=== PATIENT | female | born 1950 | race Caucasian/White ===

== ENCOUNTER 2020-02-11 14:36 | Emergency (ER) | payer BC, MEDICARE ==
--- NOTE | 2020-02-11 15:37 | ER Document Report ---
ED Medical Screen (RME) - General Chief Complaint: Constipation Stated Complaint: CONSTIPATION - DR REFERRED Time Seen by Provider: 02/11/20 15:22 Primary Care Provider: AMINATA GALVAN MD [Primary Care Provider] - Follow up as needed TRAVEL OUTSIDE OF THE [place] IN LAST 30 DAYS: No - HPI Notes: 02/11/20 15:35 69-year-old female to the emergency department with complaints of abdominal pain, constipation, weight loss over the past several weeks. She presents with 1 of her friends who states that she has been very concerned about the patient's weight loss. She thinks in about the past month she has had about 17 pound weight loss. Patient states that she really does not have much of an appetite and has been having some difficulty going to the bathroom. She did have a bowel movement earlier today but it was unsatisfactory. She denies any night sweats but does admit to chills. 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 The friend who is with the patient states that called her primary care physician, Dr. aCrranza and was advised to come to the emergency department. The friend also reports frequent urination, burning with urination and some confusion. I performed a brief medical screening exam on the patient determined that the patient needs further evaluation and management by main side provider. I have placed initial orders to help expedite care. Physical Exam - Vital signs Vitals: Temp Pulse Resp BP Pulse Ox 98.4 F 78 18 120/63 99 02/11/20 14:51 02/11/20 14:51 02/11/20 14:51 02/11/20 14:51 02/11/20 14:51 Course - Vital Signs Vital signs: Temp Pulse Resp BP Pulse Ox 98.4 F 78 18 120/63 99 02/11/20 14:51 02/11/20 14:51 02/11/20 14:51 02/11/20 14:51 02/11/20 14:51 Doctor's Discharge - Discharge Referrals: AMINATA GALVAN MD [Primary Care Provider] - Follow up as needed
[2020-02-11 16:13] LABS: ABSOLUTE BASOPHILS # (AUTO) 0.1 10^3/uL (0.0-0.2); ABSOLUTE EOSINOPHILS # (AUTO) 0.1 10^3/uL (0.0-0.6); ABSOLUTE LYMPHOCYTES (AUTO) 1.3 10^3/uL (0.5-4.7); ABSOLUTE MONOCYTES (AUTO) 0.9 10^3/uL (0.1-1.4); ABSOLUTE NEUT (AUTO) 9.3 10^3/uL (1.7-8.2); BASOPHILS % (AUTO) 0.4 % (0-2); EOSINOPHILS % (AUTO) 0.5 % (0-6); HEMATOCRIT 42.8 % (36.0-47.0); HEMOGLOBIN 14.6 g/dL (12.0-15.5); LYMPHOCYTES % (AUTO) 11.1 % (13-45); MEAN CORPUSCULAR HEMOGLOBIN 30.2 pg (27.0-33.4); MEAN CORPUSCULAR HGB CONC 34.1 g/dL (32.0-36.0); MEAN CORPUSCULAR VOLUME 88 fl (80-97); MONOCYTES % (AUTO) 7.6 % (3-13); PLATELET COUNT 253 10^3/uL (150-450); RED BLOOD COUNT 4.85 10^6/uL (3.72-5.28); RED CELL DISTRIBUTION WIDTH 13.2 % (11.5-14.0); SEGMENTED NEUTROPHILS % (AUTO) 80.4 % (42-78); TOTAL CELLS COUNTED % (AUTO) 100 %; WHITE BLOOD COUNT 11.6 10^3/uL (4.0-10.5)
[2020-02-11 16:17] LABS: APPEARANCE,URINE SLIGHTLY-CLOUDY; BILIRUBIN,URINE NEGATIVE (NEGATIVE); COLOR,URINE STRAW; GLUCOSE, URINE NEGATIVE (NEGATIVE); KETONES,URINE NEGATIVE (NEGATIVE); PROTEIN,URINE NEGATIVE (NEGATIVE); URINE SPECIFIC GRAVITY 1.002; UROBILINOGEN,URINE NEGATIVE mg/dL (<2.0)
[2020-02-11 16:36] LABS: ALBUMIN 4.4 g/dL (3.5-5.0); ALKALINE PHOSPHATASE 82 U/L (38-126); ANION GAP 9 (5-19); ASPARTATE AMINO TRANSFERASE 25 U/L (14-36); BILIRUBIN,DIRECT 0.3 mg/dL (0.0-0.4); BILIRUBIN,TOTAL 1.3 mg/dL (0.2-1.3); BLOOD UREA NITROGEN 10 mg/dL (7-20); CALCIUM 9.9 mg/dL (8.4-10.2); CARBON DIOXIDE 28 mmol/L (22-30); CHLORIDE 97 mmol/L (98-107); GLUCOSE 100 mg/dL (75-110); POTASSIUM 3.6 mmol/L (3.6-5.0); TOTAL PROTEIN 7.1 g/dL (6.3-8.2)
--- NOTE | 2020-02-11 20:31 | RADIOLOGY REPORT (SQ) ---
CLINICAL INDICATION: abd pain, constipation, weight loss. . TECHNIQUE: Contrast enhanced spiral axial CT imaging was obtained of the abdomen and pelvis with multiplanar reconstructions. This exam was performed according to our departmental dose-optimization program, which includes automated exposure control, adjustment of the mA and/or kV according to patient size and/or use of iterative reconstruction techniques. Additional delayed phase imaging COMPARISON: None. CORRELATION: None. FINDINGS: Abdomen: The lung bases are grossly clear. The heart is prominent with coronary calcification. No evidence of pleural or pericardial fluid. The liver is of normal size contour and attenuation. The gallbladder is nondistended without inflammatory change. The pancreas is unremarkable. The spleen is unremarkable. The adrenals are unremarkable. The kidneys demonstrate a focal area of poor perfusion midpole the right kidney laterally, best seen series 3 image 34. Heterogeneous right nephrogram. There is no evidence of free air. No free fluid. No bulky adenopathy. Abdominal aorta is calcified but nonaneurysmal. Pelvis: The bowel is nonobstructed. The bowel is unopacified with oral contrast. Pelvic contents are unremarkable. The appendix is normal. Visualized bones are unremarkable. IMPRESSION: Focal area of heterogeneous perfusion midpole of the right kidney laterally. Most likely diagnosis is focal pyelonephritis. A neoplasm is possible but considered less likely as there is no positive mass effect. There are surrounding inflammatory changes. Advise correlation with urinalysis.
--- NOTE | 2020-02-11 22:22 | RADIOLOGY REPORT (SQ) ---
INDICATION: memory loss. COMPARISON: None CORRELATION: None TECHNIQUE: Noncontrast spiral axial CT images were obtained from the skull base to vertex. This exam was performed according to our departmental dose-optimization program, which includes automated exposure control, adjustment of the mA and/or kV according to patient size and/or use of iterative reconstruction techniques. FINDINGS: There is no evidence of acute intracranial hemorrhage, midline shift, mass effect or mass lesion. Maddox-white differentiation is normal. There is no evidence of acute large territory infarct. Age-related involutional changes are identified. Presumed old small vessel ischemic changes are seen predominantly in a periventricular distribution.. The visualized paranasal sinuses are grossly clear. The orbits and eyeballs are unremarkable. Left mastoidectomy changes. Skull base and calvarium appear intact. IMPRESSION: No acute intracranial process is identified. The cause of the patient's memory loss is not identified on this examination.
--- NOTE | 2020-02-11 22:23 | ER Document Report ---
ED General - General Chief Complaint: Abdominal Pain Stated Complaint: CONSTIPATION - DR REFERRED Time Seen by Provider: 02/11/20 15:22 Primary Care Provider: AMINATA GALVAN MD [ACTIVE STAFF] - Follow up as needed Notes: 69-year-old female history of factor V Leiden on Xarelto, hypertension, hyperlipidemia presents with lower abdominal discomfort and intermittent constipation for last several weeks. Patient has had poor diet and poor bowel habits since taking care of her who has terminal cancer. Patient has appointment to follow-up with primary care doctor next week but [id number] was concerned because she came to visit patient and she had lost more than 10 pounds since she saw her a few weeks ago and brought her to the ED. Patient denies having the lower abdominal pain now. The abdominal pain resolved after she had small BM today. [id number] was also concerned because she feels that patient has been having memory loss over the past few months. patient has had no vomiting, obstipation, fever, flank pain, chest pain, shortness of breath, SI or HI, head injury, headache, neck pain or stiffness TRAVEL OUTSIDE OF THE [place] IN LAST 30 DAYS: No - Related Data Allergies/Adverse Reactions: No Known Allergies Allergy (Unverified 02/11/20 20:03) Past Medical History - General Information source: Patient, Relative - Social History Smoking Status: Former Smoker Chew tobacco use (# tins/day): No Frequency of alcohol use: None Drug Abuse: None Family History: Reviewed & Not Pertinent Patient has homicidal ideation: No - Past Medical History Cardiac Medical History: Reports: Hx Hypertension Endocrine Medical History: Reports: Hx Diabetes Mellitus Type 2 - pre-diabetic on metformin Review of Systems - Review of Systems Notes: REVIEW OF SYSTEMS: CONSTITUTIONAL : Denies fever, chills, or sweats. EENT: Denies recent cold/sinus symptoms, denies throat pain CARDIOVASCULAR: Denies chest pain, BABS RESPIRATORY: Denies cough, denies shortness of breath. GASTROINTESTINAL: Denies diarrhea, nausea/vomiting. GENITOURINARY: Denies difficulty urinating, +painful urination. FEMALE GENITOURINARY: Denies abnormal vaginal bleeding, vaginal discharge. MUSCULOSKELETAL: Denies neck pain, back pain. SKIN: Denies rash or skin lesions. HEMATOLOGIC : Denies easy bruising or bleeding. LYMPHATIC: Denies swollen, enlarged glands. NEUROLOGICAL: Denies headache, denies change in gait. PSYCHIATRIC: Denies SI and HI Physical Exam - Vital signs Vitals: Temp Pulse Resp BP Pulse Ox 98.4 F 78 18 120/63 99 02/11/20 14:51 02/11/20 14:51 02/11/20 14:51 02/11/20 14:51 02/11/20 14:51 - Notes Notes: PHYSICAL EXAMINATION: GENERAL: Well-appearing, well-nourished and in no acute distress. HEAD: Atraumatic, normocephalic. EYES: Pupils equal round and appropriate constriction, sclera anicteric, conjunctiva are normal. ENT: nares patent, moist mucous membranes. NECK: Normal range of motion, supple without lymphadenopathy LUNGS: Breath sounds clear to auscultation bilaterally and equal. No wheezes rales or rhonchi. HEART: Regular rate and rhythm without murmurs ABDOMEN: Soft, nontender, no guarding, no masses, no CVAT EXTREMITIES: Normal range of motion, no pitting or edema. No cyanosis. NEUROLOGICAL: Awake, alert, oriented, conversing appropriately, moves all extremities spontaneously, CN 2 through 12 intact, normal strength and sensation PSYCH: Normal mood, normal affect, very sad when talking about sick but appears to be coping well SKIN: Warm, Dry, normal turgor, no rashes or lesions noted. Course - Re-evaluation Re-evalutation: 02/11/20 22:23 Intermittent constipation without any current constipation or obstipation, normal rectal exam with no stool impaction, CT abdomen pelvis ordered in triage awaiting results. No signs clinically of obstruction, will rule out mass on CT, weight loss likely secondary to stress and 's illness, patient has no SI or HI and good support network. Will obtain CT head to rule out mass or chronic subdural given patient uses Xarelto and family has noted recent memory loss but no neuro deficits on my exam and patient has no headache. If normal imaging and no significant lab derangements will give copies of all results and have patient follow-up with her primary doctor as scheduled next week. Patient compliant with Xarelto, no PE symptoms. 02/11/20 22:26 Mild hyponatremia consistent with poor p.o. intake but not sufficiently low to cause patient current symptoms and appropriate for outpatient follow-up. Patient also has borderline leukocytosis which is not consistent with any acute infection process and no acute findings on CT abdomen pelvis or head. Patient recently had dysuria on review of systems and had started taking Cipro which improved her symptoms so will discharge patient on course of Bactrim for cystitis, patient has no Willian symptoms and no kidney stones. Patient ready for discharge, given return precautions. - Vital Signs Vital signs: Temp Pulse Resp BP Pulse Ox 98.5 F 72 18 124/65 99 02/11/20 22:40 02/11/20 22:40 02/11/20 22:40 02/11/20 22:40 02/11/20 22:40 - Laboratory Result Diagrams: 02/11/20 15:52 02/11/20 15:52 Laboratory results interpreted by me: 02/11/20 02/11/20 02/11/20 15:52 15:52 15:52 WBC 11.6 H Lymph % (Auto) 11.1 L Absolute Neuts (auto) 9.3 H Seg Neutrophils % 80.4 H Sodium 133.6 L Chloride 97 L ALT 36 H Urine Blood SMALL H Leukocyte Esterase Rfl LARGE H Discharge - Discharge Clinical Impression: Hyponatremia Constipation Qualifiers: Constipation type: unspecified constipation type Qualified Code(s): K59.00 - Constipation, unspecified UTI (urinary tract infection) Qualifiers: Urinary tract infection type: acute cystitis Hematuria presence: without hematuria Qualified Code(s): N30.00 - Acute cystitis without hematuria Disposition: HOME, SELF-CARE Prescriptions: Sulfamethoxazole/Trimethoprim [Bactrim Ds Tablet] 1 tab PO BID 3 Days #6 tablet Referrals: AMINATA GALVAN MD [ACTIVE STAFF] - Follow up as needed
[2020-02-11 22:54] VITALS: BP 124/65
== END 2020-02-11 22:53 | disposition home or self-care (01) ==
LOC: ER 14:36
DX: N30.00 Acute cystitis without hematuria (principal); K59.00 Constipation, unspecified; R41.3 Other amnesia; E87.1 Hypo-osmolality and hyponatremia; R10.9 Unspecified abdominal pain; R10.30 Lower abdominal pain, unspecified; Z79.01 Long term (current) use of anticoagulants; I10 Essential (primary) hypertension; E78.5 Hyperlipidemia, unspecified; Z87.891 Personal history of nicotine dependence; E11.9 Type 2 diabetes mellitus without complications; R63.4 Abnormal weight loss
CPT/HCPCS: 36415; 70450; 74177; 80053; 81001; 85025; 87040; 99285